=== PATIENT | female | born 1970 | race Caucasian/White ===

== ENCOUNTER 2017-08-11 21:06 | Emergency (ER) | END 2017-08-11 21:30 | disposition left against medical advice (07) ==

== ENCOUNTER 2018-11-10 21:44 | Emergency (ER) | payer SELFPAY ==
[~2018-11-10] VITALS: Ht 154.9 cm; Wt 63.8 kg
[~2018-11-10 21:44] MED LIST: FIORICET PO; PRED20TA PO
[2018-11-10 22:10] VITALS: Ht 154.9 cm; Wt 63.8 kg
--- NOTE | 2018-11-11 00:53 | ERD ---
ER Documentation Chief Complaint Chief Complaint generalize body painn/back pain x 4 days HPI 48-year-old female with no significant past medical history presenting to the emergency department complaining of dysuria for the past 15 days. She also reports mid to low back pain bilaterally which is intermittent and moderate in severity. She denies any abdominal pain. She denies fevers, chills, nausea, vomiting, diarrhea, or other symptoms at this time. She denies any heavy lifting or twisting or other symptoms. She took [id number] medication with some relief. ROS All systems reviewed and are negative except as per history of present illness. Medications Home Meds Active Scripts Ibuprofen* (Motrin*) 600 Mg Tab, 600 MG PO Q6, #30 TAB Prov:MURALI WHITE PA-C 11/11/18 Cephalexin* (Keflex*) 500 Mg Capsule, 500 MG PO QID for 7 Days, CAP Prov:MURALI WHITE PA-C 11/11/18 Acetamin/Butalbital/Caffeine* (Fioricet*) 1 Tab Tab, 1 TAB PO Q4H PRN for HEADACHE, #30 TAB Prov:SHANKAR HINES MD 06/20/15 Prednisone* (Prednisone*) 20 Mg Tab, 60 MG PO DAILY for 6 Days, TAB Prov:SHANKAR HINES MD 06/20/15 Allergies Allergies: Coded Allergies: Penicillins (Verified Allergy, Mild, 02/28/15) Uncoded Allergies: MAXEL (Allergy, Unknown, 01/30/14) PMhx/Soc History of Surgery: Yes (TONSILLECTOMY WHEN 23 YRS OLD) Anesthesia Reaction: No Hx Neurological Disorder: No Hx Respiratory Disorders: No Hx Cardiac Disorders: No Hx Psychiatric Problems: Yes (DEPRESSION, ANXIETY) Hx Miscellaneous Medical Probl: Yes (uti, ovarian cysts. MIGRAINE) Hx Alcohol Use: Yes (OCCASSIONALLY) Hx Substance Use: No Hx Tobacco Use: No Smoking Status: Never smoker FmHx Family History: No diabetes Physical Exam Vitals Vital Signs Date Temp Pulse Resp B/P (MAP) Pulse Ox O2 O2 Flow FiO2 Time Delivery Rate 11/11/18 98.5 66 19 178/86 99 Room Air 01:32 (116) 11/10/18 98.3 71 18 164/94 97 22:10 (117) Physical Exam Const: No acute distress Head: Atraumatic Eyes: Normal Conjunctiva ENT: Normal External Ears, Nose and Mouth. Neck: Full range of motion. No meningismus. Resp: Clear to auscultation bilaterally Cardio: Regular rate and rhythm, no murmurs Abd: Soft, non tender, non distended. Normal bowel sounds. No rebound tenderness or guarding. No McBurney's point tenderness. Skin: No petechiae or rashes Back: No midline or flank tenderness. No CVA tenderness. Ext: No cyanosis, or edema Neur: Awake and alert Psych: Normal Mood and Affect Results 24 hrs Laboratory Tests Test 11/11/18 01:01 11/11/18 01:02 Bedside Urine pH (LAB) 6.0 Bedside Urine Protein (LAB) Negative Bedside Urine Glucose (UA) Negative Bedside Urine Ketones (LAB) Negative Bedside Urine Blood Negative Bedside Urine Nitrite (LAB) Negative Bedside Urine Leukocyte Esterase (L Trace POC Beta HCG, Qualitative NEGATIVE Procedures/MDM 48-year-old female presented to the emergency department with signs, symptoms, work-up most consistent with urinary tract infection. no evidence of pyonephritis, sepsis, acute surgical abdomen, cord compression, or other emergencies. The patient is stable and appropriate for discharge and further o utpatient management with prescriptions. She is advised to return to the department immediately for any new or worsening or concerning symptoms and have close primary care follow-up. She was in agreement and her questions and concerns were addressed prior to discharge. No evidence of life-threatening pathology at time of discharge. Pt/family in agreement with discharge plan/diagnosis. Pt/family advised to return immediately with any new or worsening symptoms. Follow-up with primary care physician within the next 1-2 days. Patient's blood pressure was elevated (>120/80) but appears stable without evidence of hypertension emergency or urgency. The patient is to follow-up and pursue outpatient monitoring and therapy with their primary care physician ajimee bucio 1 week and return immediately if they have any new, worsening, or concerning symptoms. Departure Diagnosis: Primary Impression: UTI (urinary tract infection) Condition: MURALI Sierra PA-C Nov 11, 2018 00:53
[2018-11-11] MEDS ORDERED: IBUP-1542 PO (01:11)
[2018-11-11] MEDS ORDERED: CEPH-443 PO (01:11)
[2018-11-11 01:32] VITALS: BP 178/86; PULSE 66; RESP 19
== END 2018-11-11 01:37 | disposition home or self-care (01) ==
LOC: FTE 21:44
DX: N39.0 Urinary tract infection, site not specified (principal)
CPT/HCPCS: 81003; 81025; 99283

== ENCOUNTER 2018-11-20 01:53 | Emergency (ER) | payer MEDICAID ==
[~2018-11-20] VITALS: Ht 154.9 cm; Wt 63.9 kg
[~2018-11-20 01:53] MED LIST changes: +CEPH-443 PO; +IBUP-1542 PO
[2018-11-20 02:05] VITALS: Ht 154.9 cm; Wt 63.9 kg
[2018-11-20] MEDS ORDERED: KETOROLAC 15 MG INJ IV STA (02:57)
[2018-11-20] MEDS ORDERED: SOD CHLORIDE 0.9% 1,000 ML IV STA (02:57)
--- NOTE | 2018-11-20 04:50 | ERD ---
ER Documentation Chief Complaint Chief Complaint STATES SYNCOPAL EPISODE AT 0100, C/O LT SIDED CP, KIRSTEN LEG PAIN HPI There is a 48-year-old female who is speaking using a flat breakdown processor. The patient has multiple complaints. Today she is describing a possible syncopal versus near syncopal episode. She states that she felt lightheaded and may have passed out. Patient has been having 1 week of left-sided chest discomfort that she describes as constant, burning and worse to touch. She denies any pleuritic pain. She is having whole body pain. Patient describes numbness and tingling to her entire body as well. She has had similar symptoms in the past and told it was anxiety. She denies any recent travel, immobilization, no family history of DVT pulmonary embolism or early cardiac disease. No exertional symptoms. ROS All systems reviewed and are negative except as per history of present illness. Medications Home Meds Active Scripts Ibuprofen* (Motrin*) 600 Mg Tab, 600 MG PO Q6, #30 TAB Prov:MURALI WHITE PA-C 11/11/18 Cephalexin* (Keflex*) 500 Mg Capsule, 500 MG PO QID for 7 Days, CAP Prov:MURALI WHITE PA-C 11/11/18 Acetamin/Butalbital/Caffeine* (Fioricet*) 1 Tab Tab, 1 TAB PO Q4H PRN for HEADAC HE, #30 TAB Prov:SHANKAR HINES MD 06/20/15 Prednisone* (Prednisone*) 20 Mg Tab, 60 MG PO DAILY for 6 Days, TAB Prov:SHANKAR HINES MD 06/20/15 Allergies Allergies: Coded Allergies: Penicillins (Verified Allergy, Mild, 02/28/15) Uncoded Allergies: MAXEL (Allergy, Unknown, 01/30/14) PMhx/Soc Medical and Surgical Hx: pt denies Medical Hx History of Surgery: Yes (tonsillectomy) Anesthesia Reaction: No Hx Neurological Disorder: No Hx Respiratory Disorders: No Hx Cardiac Disorders: No Hx Psychiatric Problems: Yes (DEPRESSION, ANXIETY) Hx Miscellaneous Medical Probl: Yes (anxiety) Hx Alcohol Use: No Hx Substance Use: No Hx Tobacco Use: No Smoking Status: Never smoker FmHx Family History: No diabetes Physical Exam Vitals Vital Signs Date Temp Pulse Resp B/P (MAP) Pulse Ox O2 O2 Flow FiO2 Time Delivery Rate 11/20/18 Nasal 2 04:09 Cannula 11/20/18 77 16 140/90 100 Room Air 02:48 (107) 11/20/18 98.6 69 20 157/76 98 02:05 (103) Physical Exam General: Well developed, well nourished, no acute distress Head: Normocephalic, atraumatic. Eyes: Pupils equally reactive, EOM intact ENT: Moist mucous membranes Neck: Supple, no lymphadenopathy Respiratory: Lungs clear bilaterally, no distress Cardiovascular: RRR, no murmurs, rubs, or gallops Abdominal: Soft, non-tender, non-distended, no peritoneal signs : Deferred MSK: No edema, no unilateral swelling, 5/5 strength Neurologic: Alert and oriented, moving all extremities, normal speech, no focal weakness, no cerebellar signs Skin: No rash Psych: Normal mood Result Diagram: 11/20/18 0328 11/20/18 0328 Results 24 hrs Laboratory Tests Test 11/20/18 03:22 11/20/18 03:28 11/20/18 04:52 POC Beta HCG, Qualitative NEGATIVE White Blood Count 6.6 10^3/ul Red Blood Count 4.73 10^6/ul Hemoglobin 14.4 g/dl Hematocrit 41.2 % Mean Corpuscular Volume 87.1 fl Mean Corpuscular Hemoglobin 30.4 pg Mean Corpuscular 35.0 g/dl Hemoglobin Concent Red Cell Distribution Width 11.9 % Platelet Count 309 10^3/UL Mean Platelet Volume 10.9 fl Immature Granulocytes % 0.500 % Neutrophils % 62.6 % Lymphocytes % 29.9 % Monocytes % 5.8 % Eosinophils % 0.9 % Basophils % 0.3 % Nucleated Red Blood Cells % 0.0 /100WBC Immature Granulocytes # 0.030 10^3/ul Neutrophils # 4.1 10^3/ul Lymphocytes # 2.0 10^3/ul Monocytes # 0.4 10^3/ul Eosinophils # 0.1 10^3/ul Basophils # 0.0 10^3/ul Nucleated Red Blood Cells # 0.0 10^3/ul Prothrombin Time 12.8 Sec Prothrombin Time Ratio 1.0 INR International Normalized Ratio 0.95 Activated Partial Thromboplast 34.7 Sec Time D-Dimer 220.00 ng/ml D-Dimer Comment Sodium Level 144 mmol/L Potassium Level 3.8 mmol/L Chloride Level 105 mmol/L Carbon Dioxide Level 28 mmol/L Anion Gap 11 Blood Urea Nitrogen 21 mg/dl Creatinine 0.72 mg/dl Est Glomerular Filtrat Rate mL/min > 60 mL/min Glucose Level 138 mg/dl Calcium Level 10.1 mg/dl Troponin I < 0.012 ng/ml Bedside Urine pH (LAB) 5.5 Bedside Urine Protein (LAB) Negative Bedside Urine Glucose (UA) Negative Bedside Urine Ketones (LAB) Negative Bedside Urine Blood Negative Bedside Urine Nitrite (LAB) Negative Bedside Urine Leukocyte Esterase Negative (L Current Medications Medications Dose Sig/Davon Start Time Status Last (Trade) Ordered Route PRN Stop Time Admin Dose Reason Admin Sodium 1,000 ml @ Q1H STAT 11/20/18 DC 11/20/18 Chloride 1,000 mls/hr IV 02:57 03:23 11/20/18 03:56 Ketorolac 15 mg ONCE STAT 11/20/18 DC 11/20/18 Tromethamine IV 02:57 03:22 (Toradol) 11/20/18 02:58 Procedures/MDM EKG, MONITORS, & DIAGNOSTIC IMAGING: EKG: I reviewed and interpreted a 12-lead EKG. Rhythm: Normal sinus rhythm ST Changes: No contiguous ST segment elevations T waves: No contiguous T wave inversions Impression: No evidence of acute cardiac ischemia Chest x-ray: I reviewed and interpreted a 1 view of the chest Mediastinum: No enlargement Cardiac silhouette: No cardiomegaly Airspace: Clear lung richards bilaterally without evidence of pneumothorax Bones: No evidence of fracture LAB INTERPRETATION: I reviewed the laboratory testing and it shows no evidence of acute process MEDICAL DECISION MAKING: Patient has a multitude of nonspecific symptoms including pain to her entire body, paresthesias, possible syncope versus near syncope. Her exam and presentation are possibly consistent with anxiety reaction. No signs or symptoms or risk factors for pulmonary embolism. Wells low risk criteria is met. D-dimer appropriate. Her chest pain seems to be reproducible and non- cardiac. However given 1 week of symptoms EKG and troponin would be reasonable. Laboratory testing to rule out anemia or alternative process would also be reasonable. The patient was given reassurance and is to follow-up with primary care physician. ER COURSE: * Laboratory testing is unrevealing. D-dimer is negative. * Patient given reassurance and can follow-up with primary care physician. CONSULTATION: None DISPOSITION PLAN: The patient does not have an identifiable emergent medical condition that warrants inpatient hospitalization at this time. The patient is deemed safe for discharge with outpatient follow-up. We discussed follow up with the patient's primary care doctor within 24 to 48 hours as needed. We also discussed return to the emergency room for worsening symptoms or worsening condition. Outpatient referral: None required Discharge Medications: None required Departure Diagnosis: Primary Impression: Anxiety Additional Impressions: Near syncope Whole body pain Condition: Stable Patient Instructions: Anxiety Reaction Ref[facility] Usted se barnes hecho un examen mdico de control que le indica que no est en rin condicin que requiera tratamiento urgente en el Departamento de Emergencia. Un estudio ms profundo y el tratamiento de curry condicin pueden esperar sin ningn riesgo hasta que usted sea atendida/o en el consultorio de curry mdico o rin clnica. Es responsabilidad suya arreglar rin jr para el seguimiento del jyoti. MANEJO DE CONDICIONES NO URGENTES EN EL FUTURO 1) Si usted tiene un mdico de atencin primaria: Usted debera llamar a curry mdico de atencin primaria antes de venir al departamento de emergencia. Despus de las horas de consultorio, curry doctor o curry asociado/a est disponible por telfono. El mdico o enfermero de rita en el servicio telefnico puede asesorarle por gabby medio para atender el problema, o jyoti contrario se puede programar rin jr. 2) Si usted no tiene un mdico de atencin primaria: Llame al mdico o clnica de referencia que aparece abajo nick las horas de consultorio para hacer rin jr para que le vean. CLINICAS: [facility] 102 [phone] [address] [facility] 758 [phone] [address] [facility] [phone] [facility] [phone] [facility] 006 [phone] [address] [facility]. [phone] [address] [facility]. [facility] () Usted se barnes hecho un examen mdico de control que le indica que no est en rin condicin que requiera tratamiento urgente en el Departamento de Emergencia. Un estudio ms profundo y el tratamiento de curry condicin pueden esperar sin ningn riesgo hasta que usted sea atendida/o en el consultorio de curry mdico o rin clnica. Es responsabilidad suya arreglar rin jr para el seguimiento del jyoti. MANEJO DE CONDICIONES NO URGENTES EN EL FUTURO 1) Si usted tiene un mdico de atencin primaria: Usted debera llamar a curry mdico de atencin primaria antes de venir al departamento de emergencia. Despus de las horas de consultorio, curry doctor o curry asociado/a est disponible por telfono. El mdico o enfermero de rita en el servicio telefnico puede asesorarle por gabby medio para atender el problema, o jyoti contrario se puede programar rin jr. 2) Si usted no tiene un mdico de atencin primaria: Llame al mdico o condado institucions de referencia que aparece abajo nick las horas de consultorio para hacer rin jr para que le vean. SI USTED NO PUEDE PAGAR PARA LUCAS UN MEDICO puede ir a: [facility] [id number] [place] [address] [facility] [address] [place] [address] [facility] [address] [place] [address] [facility] [address] [place] [address] Additional Instructions: Llame al doctor MAANA y aurea rin JR PARA DENTRO DE 2-3 LOBATO.Dgale a la secretaria que nosotros le instruimos hacer esta jr.Avise o llame si curry condicin se empeora antes de la jr. Regresa aqui si peor o no mejor. SHANKAR HINES MD Nov 20, 2018 04:50
[2018-11-20 05:01] VITALS: BP 142/88; PULSE 72; RESP 16
== END 2018-11-20 05:14 | disposition home or self-care (01) ==
LOC: E/R 01:53
DX: F41.9 Anxiety disorder, unspecified (principal); R52 Pain, unspecified
CPT/HCPCS: 36415; 71045; 80048; 81003; 81025; 84484; 85025; 85378; 85610; 85730; 93005; 96374; J1885; J7030; Z7502